=== PATIENT | male | born 1975 | race Caucasian/White ===

== ENCOUNTER 2025-08-16 20:12 | Emergency (ER) | payer OTHER ==
[2025-08-16] MEDS ORDERED: Ketorolac Tromethamine 30 MG (1 mL) VIAL ONE (21:08)
[2025-08-16 21:36] LABS: Glucose, Urine (Dipstick) Normal (Negative); Leukocyte Negative (Negative); Protein, Urine (Dipstick) Negative (Neg-Trace); Specific Gravity, Urine 1.025 (1.005-1.030)
[2025-08-16 21:53] LABS: Bacteria/HPF 1+ HPF (None Seen); CAUTI Indications for Culture Pelvic or flank pain; RBC/HPF 0-3 HPF (0-3); WBC/HPF 0-3 HPF (0-3)
[2025-08-16 21:55] LABS: Mucous/LPF Rare LPF (<2+)
[2025-08-16 21:56] LABS: Urine Culture Reflex No No
== END 2025-08-16 22:30 ==
LOC: CSHERS 20:12
DX: M51.16 Intervertebral disc disorders with radiculopathy, lumbar region (principal); F17.210 Nicotine dependence, cigarettes, uncomplicated
CPT/HCPCS: 72131; 74176; 81001; 96372; J1885